=== PATIENT | female | born 1955 | race Caucasian/White ===

== ENCOUNTER 2022-01-19 05:42 | Day surgery (SDC) | payer OTHER ==
[2022-01-15 17:06] VITALS: BMI 35.2
[2022-01-19] MEDS ORDERED: BUPIVACAINE LIPOSOME/PF (EXPAREL) 266 MG/20 ML VIAL ONE (06:53)
[2022-01-19] MEDS ORDERED: MIDAZOLAM HCL 2 MG/2 ML SINGLE DOSE VIAL ONE (06:53)
[2022-01-19] MEDS ORDERED: SODIUM CHLORIDE 0.9% P/F 10 ML VIAL IJ ONE (06:54)
[2022-01-19] MEDS ORDERED: BUPIVACAINE HCL 50 ML ONE (06:54)
[2022-01-19] MEDS ORDERED: VANCOMYCIN 1,000 MG VIAL (RESTRICTED TO ID ONLY) ONE (07:17)
[2022-01-19] MEDS ORDERED: PROPOFOL 20 ML ONE ×5 (07:42→10:03)
[2022-01-19] MEDS ORDERED: TRANEXAMIC ACID 1000 MG/10 ML VIAL ONE (07:42)
[2022-01-19] MEDS ORDERED: ceFAZolin SODIUM 1 GM VIAL ONE ×2 (07:42→16:29)
[2022-01-19] MEDS ORDERED: BUPIVICAINE 0.25%/MORPH PF/KETOROLAC - 51ML DISP.SYRINGE IA ONE (09:27)
[2022-01-19] MEDS ORDERED: MAG HYDROX/AL HYDROX/SIMETH 30 ML UNIT-DOSE CUP PO PRN (10:30)
[2022-01-19] MEDS ORDERED: LACTATED RINGERS SOLUTION 1,000 ML IV SCH (10:30)
[2022-01-19] MEDS: ONDANSETRON 4 MG/2 ML VIAL IVPUSH PRN (11:45)
[2022-01-19] MEDS ORDERED: ACETAMINOPHEN 1000 MG/100 ML BAG IVPB SCH (14:15)
[2022-01-19] MEDS ORDERED: ACETAMINOPHEN 1000 MG/100 ML BAG IVPB ONE (14:49)
[2022-01-19] MEDS ORDERED: DEXTROSE 5%-WATER - 50 ML IVPB ONE (16:30)
[2022-01-19] MEDS: CEFAZOLIN 2 GM in DEXTROSE 5%-WATER - 50 ML IVPB SCH (16:51)
[2022-01-19] MEDS: HYDROmorphone HCL/PF 1 MG/ML VIAL IVPUSH PRN (16:52)
[2022-01-19] MEDS: metFORMIN HCL 500 MG TABLET (FP) PO SCH (16:52)
[2022-01-19] MEDS: INSULIN (NOVOLOG) ASPART 100 UNITS/ML 10ML VIAL SQ SCH ×2 (17:16→21:54)
[2022-01-19] MEDS: GABAPENTIN 300 MG CAPSULE PO SCH (21:35)
[2022-01-19] MEDS: MONTELUKAST NA 10 MG TABLET PO SCH (21:35)
[2022-01-19] MEDS: ATORVASTATIN CA 10 MG TABLET (FP) PO SCH (21:35)
[2022-01-19] MEDS: oxyCODONE HCL 10 MG SUSTAINED ACTING TABLET PO SCH (21:36)
[2022-01-19] MEDS: SENNOSIDES/DOCUSATE COMBO (SENNA PLUS) TABLET (UD) PO SCH (21:36)
[2022-01-19] MEDS: BUDESONIDE/FORMETEROL FUMARATE 160/4.5 mcg INHALER IH SCH (21:38)
[2022-01-19] MEDS ORDERED: PATIENT'S OWN MEDICATION (NON-FORMULARY) (Simvastatin [Zocor] 20 MG Tablet) PO SCH (22:00)
[2022-01-19] MEDS: ACETAMINOPHEN 500 MG TABLET (FP) PO SCH (23:18)
[2022-01-20] MEDS ORDERED: DEXTROSE 5%-WATER - 50 ML IVPB ONE ×3 (00:14→11:48)
[2022-01-20] MEDS ORDERED: ceFAZolin SODIUM 1 GM VIAL ONE ×3 (00:14→11:48)
[2022-01-20] MEDS: CEFAZOLIN 2 GM in DEXTROSE 5%-WATER - 50 ML IVPB SCH ×2 (00:18→12:04)
[2022-01-20] MEDS: oxyCODONE HCL 5 MG TABLET PO PRN ×2 (00:26→15:44)
[2022-01-20] MEDS: metFORMIN HCL 500 MG TABLET (FP) PO SCH ×2 (06:08→15:44)
[2022-01-20] MEDS: ACETAMINOPHEN 500 MG TABLET (FP) PO SCH ×3 (06:08→22:10)
[2022-01-20] MEDS: HYDROmorphone HCL/PF 1 MG/ML VIAL IVPUSH PRN (06:21)
[2022-01-20] MEDS: INSULIN (NOVOLOG) ASPART 100 UNITS/ML 10ML VIAL SQ SCH ×4 (06:37→22:04)
[2022-01-20] MEDS: ONDANSETRON 4 MG/2 ML VIAL IVPUSH PRN (07:43)
[2022-01-20 07:48] LABS: CALCIUM 8.5 mg/dl (8.5-10); CREATININE 0.7 mg/dl (0.55-1.3)
[2022-01-20 10:22] LABS: HEMATOCRIT 35.6 % (32.4-45.2); HEMOGLOBIN 12.3 GM/dL (10.7-15.3); MCH 29.7 pg (25.7-33.7); MCHC 34.5 g/dl (32.0-36.0); MEAN CELL VOLUME 86.2 fl (80-96); MEAN PLT VOLUME 7.8 fl (7.5-11.1); PLATELET COUNT 202 10^3/uL (134-434); RBC 4.13 M/mm3 (3.60-5.2); RDW 13.7 % (11.6-15.6); WHITE BLOOD COUNT 7.7 K/mm3 (4.0-10.0)
[2022-01-20] MEDS: ENOXAPARIN NA (PORCINE) 30 MG/0.3 ML DISP.SYRIN SQ SCH ×2 (12:04→21:57)
[2022-01-20] MEDS: oxyCODONE HCL 10 MG SUSTAINED ACTING TABLET PO SCH ×2 (12:14→21:58)
[2022-01-20] MEDS: GABAPENTIN 300 MG CAPSULE PO SCH ×2 (12:14→21:58)
[2022-01-20] MEDS: LISINOPRIL 5 MG TABLET PO SCH (12:15)
[2022-01-20] MEDS: SENNOSIDES/DOCUSATE COMBO (SENNA PLUS) TABLET (UD) PO SCH ×2 (12:15→21:58)
[2022-01-20] MEDS: PANTOPRAZOLE 40 MG TABLET PO SCH (12:15)
[2022-01-20] MEDS: BUDESONIDE/FORMETEROL FUMARATE 160/4.5 mcg INHALER IH SCH ×2 (12:15→22:11)
[2022-01-20] MEDS: MULTIVITAMINS (DAILY MVI) TABLET (FP) PO SCH (12:16)
[2022-01-20] MEDS: ATORVASTATIN CA 10 MG TABLET (FP) PO SCH (21:57)
[2022-01-20] MEDS: MONTELUKAST NA 10 MG TABLET PO SCH (21:58)
[2022-01-21] MEDS: oxyCODONE HCL 5 MG TABLET PO PRN (05:06)
[2022-01-21] MEDS: metFORMIN HCL 500 MG TABLET (FP) PO SCH (06:26)
[2022-01-21] MEDS: ONDANSETRON 4 MG/2 ML VIAL IVPUSH PRN (06:32)
[2022-01-21] MEDS: INSULIN (NOVOLOG) ASPART 100 UNITS/ML 10ML VIAL SQ SCH ×2 (06:38→11:04)
[2022-01-21 09:30] VITALS: BP 119/69; PULSE 81; TEMP 99.9
[2022-01-21] MEDS: MULTIVITAMINS (DAILY MVI) TABLET (FP) PO SCH (09:43)
[2022-01-21] MEDS: PANTOPRAZOLE 40 MG TABLET PO SCH (09:43)
[2022-01-21] MEDS: LISINOPRIL 5 MG TABLET PO SCH (09:43)
[2022-01-21] MEDS: SENNOSIDES/DOCUSATE COMBO (SENNA PLUS) TABLET (UD) PO SCH (09:43)
[2022-01-21] MEDS: oxyCODONE HCL 10 MG SUSTAINED ACTING TABLET PO SCH (09:45)
[2022-01-21] MEDS: GABAPENTIN 300 MG CAPSULE PO SCH (09:45)
[2022-01-21 09:47] LABS: HEMATOCRIT 34.9 % (32.4-45.2); MCH 29.8 pg (25.7-33.7); MCHC 34.3 g/dl (32.0-36.0); MEAN CELL VOLUME 86.8 fl (80-96); MEAN PLT VOLUME 7.8 fl (7.5-11.1); PLATELET COUNT 195 10^3/uL (134-434); RBC 4.02 M/mm3 (3.60-5.2); RDW 13.2 % (11.6-15.6); WHITE BLOOD COUNT 8.2 K/mm3 (4.0-10.0)
[2022-01-21] MEDS: BUDESONIDE/FORMETEROL FUMARATE 160/4.5 mcg INHALER IH SCH (09:47)
[2022-01-21] MEDS: ENOXAPARIN NA (PORCINE) 30 MG/0.3 ML DISP.SYRIN SQ SCH (11:03)
== END 2022-01-21 12:26 | disposition home or self-care (01) ==
LOC: SUATTDRO 05:42 → FASUSAT 05:42 → FM/S 12:33 → EDSTATUS 13:30 → FASUSAT 01-21 12:26
PROVIDERS: ATTEND Nurse Practitioner Acute Care
PROC: 8E0YXBZ Computer Assisted Procedure of Lower Extremity (ICD-10-PCS; 2022-01-19)
PROC: 8E0Y0CZ Robotic Assisted Procedure of Lower Extremity, Open Approach (ICD-10-PCS; 2022-01-19)
PROC: 0SRC0J9 Replacement of Right Knee Joint with Synthetic Substitute, Cemented, Open Approach (ICD-10-PCS; principal; 2022-01-19 08:39)
DX: M17.11 Unilateral primary osteoarthritis, right knee (principal); I10 Essential (primary) hypertension; E11.9 Type 2 diabetes mellitus without complications; E78.5 Hyperlipidemia, unspecified; M06.9 Rheumatoid arthritis, unspecified; F41.9 Anxiety disorder, unspecified; J45.909 Unspecified asthma, uncomplicated; Z79.84 Long term (current) use of oral hypoglycemic drugs
CPT/HCPCS: 20985; 27447; C1776; S2900; 36415; 73560-TC-RT-FY; 80048; 82962; 85027; 88305-TC; 88311-TC; 94010; 94760; 97010-GP; 97116-GP; 97162-GP

== ENCOUNTER 2022-11-24 12:27 | Emergency (ER) | payer OTHER ==
[2022-11-24 13:00] VITALS: BP 132/78; PULSE 60; RESP 20; TEMP 97.8; BMI 35.2
[2022-11-24] MEDS ORDERED: SODIUM CHLORIDE 0.9% 500 ML INFUS.BAG IV ONE (13:49)
[2022-11-24] MEDS ORDERED: MECLIZINE HCL 25 MG TABLET (FP) PO ONE (13:49)
[2022-11-24] MEDS ORDERED: METOCLOPRAMIDE HCL INJECTION 10 MG/2 ML VIAL IVPUSH ONE (13:49)
[2022-11-24] MEDS ORDERED: MECLIZINE HCL 25 MG TABLET (FP) ONE (14:03)
[2022-11-24] MEDS ORDERED: METOCLOPRAMIDE HCL INJECTION 10 MG/2 ML VIAL ONE (14:03)
[2022-11-24 14:31] LABS: BASO % 1.3 % (0-2.0); EOS % 13.7 % (0-4.5); HEMATOCRIT 47.6 % (32.4-45.2); HEMOGLOBIN 15.6 GM/dL (10.7-15.3); LYMPH % 24.8 % (8-40); MCH 27.8 pg (25.7-33.7); MCHC 32.9 g/dl (32.0-36.0); MEAN CELL VOLUME 84.6 fl (80-96); MEAN PLT VOLUME 7.7 fl (7.5-11.1); NEUT % 54.2 % (42.8-82.8); PLATELET COUNT 279 10^3/uL (134-434); RBC 5.62 M/mm3 (3.60-5.2); RDW 13.6 % (11.6-15.6); WHITE BLOOD COUNT 9.2 K/mm3 (4.0-10.0)
[2022-11-24 14:52] LABS: ALBUMIN 4.7 g/dl (3.4-5.0); BLOOD UREA NITROGEN 16.2 mg/dL (7-18); CALCIUM 9.5 mg/dL (8.5-10.1)
[2022-11-24 14:55] LABS: CREATININE 0.8 mg/dL (0.55-1.3)
[2022-11-24 14:57] LABS: BILIRUBIN,TOTAL 0.7 mg/dL (0.2-1); TOT PROT 8.1 g/dl (6.4-8.2)
== END 2022-11-24 16:43 | disposition home or self-care (01) ==
LOC: JER 12:27
PROC: 3E033GC Introduction of Other Therapeutic Substance into Peripheral Vein, Percutaneous Approach (ICD-10-PCS; principal; 2022-11-24)
DX: R42 Dizziness and giddiness (principal)
CPT/HCPCS: 36415; 70450-TC; 80053; 84484; 85025; 93005; 93010; 96374; 99285-25